=== PATIENT | male | born 1965 | race Caucasian/White ===

== ENCOUNTER 2022-03-05 10:50 | Emergency (ER) | payer BC ==
[2022-03-05 11:22] LABS: HEMOGLOBIN 15.5 gm/dl (14.0-17.5); RED BLOOD COUNT 5.25 M/UL (4.20-5.50); WHITE BLOOD COUNT 8.4 K/UL (4.5-11.0)
[2022-03-05] MEDS ORDERED: FLOMAX 0.4 MG0.4 MG PO (12:35)
[2022-03-05] MEDS ORDERED: HYDROCODON-ACE1 EAC4 PO (12:43)
== END 2022-03-05 13:05 | disposition home or self-care (01) ==
LOC: ER1 10:50
DX: N13.2 Hydronephrosis with renal and ureteral calculous obstruction (principal); E78.5 Hyperlipidemia, unspecified; I10 Essential (primary) hypertension
CPT/HCPCS: 80053; 81001; 83690; 85025; 96374; 96375; 99284; J1885; J2405